=== PATIENT | female | born 1965 | race Caucasian/White ===

== ENCOUNTER 2019-02-22 09:17 | Emergency (ER) | payer MEDICAID ==
[~2019-02-22] VITALS: Ht 157.5 cm; Wt 74.4 kg
[2019-02-22 09:25] VITALS: Ht 157.5 cm; Wt 74.4 kg
[2019-02-22 11:57] VITALS: BP 119/75
== END 2019-02-22 11:57 | disposition home or self-care (01) ==
LOC: ED 09:17
DX: M54.5 Low back pain (principal); Z90.49 Acquired absence of other specified parts of digestive tract
CPT/HCPCS: J2270

== ENCOUNTER 2019-04-04 11:06 | Emergency (ER) | payer MEDICAID ==
[~2019-04-04] VITALS: Ht 152.4 cm; Wt 75.3 kg
[2019-04-04 11:11] VITALS: Ht 152.4 cm; Wt 75.3 kg
[2019-04-04 12:46] LABS: BASOPHIL % 0.4 % (0-2); PLATELET COUNT 269 x10^3mcL (130-400); RED CELL DISTRIBUTION WIDTH 14.1 % (11.5-14.5)
[2019-04-04 12:51] LABS: CARBON DIOXIDE 27.9 mmol/L (21-32); CHLORIDE SERUM 102 mmol/L (98-107); CREATININE SERUM 0.6 mg/dL (0.6-1.0); GFR1 > 60 mL/min; GLUCOSE SERUM 88 mg/dL (74-106); POTASSIUM SERUM 3.3 mmol/L (3.5-5.1); SODIUM SERUM 139 mmol/L (136-145)
[2019-04-04 12:56] LABS: ALBUMIN 3.7 g/dL (3.4-5.0); ALKALINE PHOSPHATASE 93 U/L (46-116); ALT/SGPT 30 U/L (14-59); AST/SGOT 16 U/L (15-37)
[2019-04-04 14:08] VITALS: BP 114/71
== END 2019-04-04 14:08 | disposition home or self-care (01) ==
LOC: ED 11:06
PROVIDERS: Emergency Medicine
DX: M62.830 Muscle spasm of back (principal); M54.9 Dorsalgia, unspecified; E78.00 Pure hypercholesterolemia, unspecified
CPT/HCPCS: J1885; Q0092